=== PATIENT | male | born 1940 | race Two or more races ===

== ENCOUNTER 2020-02-14 00:35 | Emergency (ER) | payer OTHER ==
[~2020-02-14] VITALS: Ht 167.6 cm; Wt 78.2 kg
[2020-02-14] MEDS ORDERED: FURO20 PO (01:22)
[2020-02-14] MEDS ORDERED: ANTIHYPERTENSIVE PO (01:22)
[2020-02-14] MEDS ORDERED: CLOP75TA3 PO (01:22)
[2020-02-14] MEDS ORDERED: HIGH CHOLESTEROL MED PO (01:22)
[2020-02-14] MEDS ORDERED: OXYMETAZOLINE HCL 0.05% 15 ML NASAL SPRAY NASAL ONE (01:45)
[2020-02-14 03:47] VITALS: BP 132/86
== END 2020-02-14 04:15 | disposition home or self-care (01) ==
LOC: EMS 00:35
DX: R04.0 Epistaxis (principal)